=== PATIENT | male | born 1995 | race African-American/Black ===

== ENCOUNTER 2016-09-10 20:49 | Emergency (ER) ==
[2016-09-10 21:05] VITALS: BP 116/60
[2016-09-10 23:34] LABS: MANUAL DIFF NEEDED? NO
[2016-09-10 23:50] LABS: BASO% 0.3 % (0.0-0.8); EOS# 0.04 X1000 (0.0-0.7); EOS% 0.4 % (0.0-10.0); HEMATOCRIT 40.2 % (42.0-52.0); HEMOGLOBIN 14.2 g/dL (14.0-18.0); IMM GRAN# 0.01 X1000 (0.0-0.04); IMM GRAN% 0.1 % (0.0-0.5); LYMPH# 1.78 X1000 (1.2-3.4); LYMPH% 17.2 % (20.5-51.1); MCH 29.2 PG (27-31); MCHC 35.3 g/dL (33-37); MCV 82.5 FL (81-99); MONO# 0.88 X1000 (0.11-0.59); MONO% 8.5 % (1.7-9.3); MPV 10.7 FL (7.4-10.4); NEUT% 73.5 % (42.2-75.2); PLT 220 X1000 (130-400); RBC 4.87 XMIL (4.7-6.1)
[2016-09-10 23:58] LABS: AGAP 9; ALBUMIN 4.6 g/dL (3.5-5.0); ALKALINE PHOSPHATASE 68 U/L (32-122); AMYLASE 54 U/L (20-200); BUN 9 mg/dL (8-22); CALCIUM 9.4 mg/dL (8.8-10.2); CHLORIDE 101 mmol/L (98-107); COSMO 270; GOT 20 U/L (10-34); GPT 20 U/L (10-44); LIPASE 22 U/L (13-60); POTASSIUM 3.5 mmol/L (3.5-5.1); SODIUM 136 mmol/L (136-145); TCO2 26 mmol/L (25-35); TOTAL PROTEIN 7.2 g/dL (6.3-8.3)
--- NOTE | 2016-09-11 00:04 | PROVIDER DOCUMENTATION ---
HPI-Abdominal Pain/GI Problem - General Chief Complaint: N/V/D Stated Complaint: N/D Time Seen by Provider: 09/10/16 22:06 Allergies/Adverse Reactions: Patient Allergies Allergy/AdvReac Type Severity Reaction Status Date / Time No Known Allergies Allergy Verified 09/10/16 21:05 Home Medications: Home Medication List Medication Instructions Recorded Confirmed Last Taken Type Ondansetron [Zofran] 4 mg PO Q6H PRN PRN #20 tablet 09/11/16 Unknown Rx - History of Present Illness-ABD Nature of Presenting Problems: 21 yom c/o generalized abdomninal pain upon awakening tonight at 8pm with one time of diarrhea. No other symptoms. Abdominal Pain Onset Location: reports: generalized abdomen Pain Radiation: reports: no radiation Quality of Pain: reports: sharp Severity in ED: reports: mild Onset/Duration: reports: abrupt Timing: reports: still present, improving Activities at Onset: reports: sleep Exposure to sick contacts?: No Modifying Factors: improves with: nothing Associated Symptoms: reports: diarrhea Last BM: this evening Dark Stools Present?: reports: none noticed Rectal Bleeding: reports: none # of Diarrhea Episodes: 1 Rectal Pain: reports: none # of Vomiting Episodes: 0 Bruising or Bleeding Gums?: No Similar Symptoms Previously?: No Recently seen or treated by another doctor?: No Review of Systems - Adult - REVIEW OF SYSTEMS - ADULT Constitutional: reports: see HPI. denies: no symptoms reported, chills, fever, fatique, night sweats, weight gain, weight loss, other Eyes: reports: no symptoms reported. denies: see HPI, discharge, dry eyes, decreased vision, blurred vision, double vision, eye pain, redness, other Ears, Nose, Mouth & Throat: reports: no symptoms reported. denies: see HPI, ear discharge, ear pain, hearing loss, tinnitus, epistaxis, sinus problem, nose pain, loose teeth, mouth/dental pain, mouth swelling, hoarseness, throat pain, throat swelling, other Cardiovascular: reports: no symptoms reported. denies: see HPI, chest pain, edema, heart murmur, irregular heart rate, orthopnea, palpitations, poor circulation, PND, syncope, other Respiratory: reports: no symptoms reported. denies: see HPI, chronic cough, cough, dyspnea on exertion, excessive sputum production, hemoptysis, pleurisy, shortness of breath, wheezing, other Gastrointestinal: reports: see HPI, abdominal pain, diarrhea. denies: no symptoms reported, hematemesis, constipation, difficulty swallowing, frequent heartburn, nausea, poor appetite, rectal bleeding, vomiting, other Genitourinary: reports: no symptoms reported. denies: see HPI, dysuria, discharge, frequency, flank pain, frequent UTI's, hematuria, hesitency, incontinence, urinary retention, urgency, other Musculoskeletal: reports: no symptoms reported. denies: see HPI, bone pain, back pain, frequent leg cramps, joint pain, joint swelling, muscle aches, muscle weakness, neck pain, other Integumentary: reports: no symptoms reported. denies: see HPI, hives, hair loss , itching, mole changes, nail changes, rash, skin sores/ulcer, skin thickening, other Neurological: reports: no symptoms reported. denies: see HPI, ataxia, dizziness /vertigo, headache/migraines, loss of balance, numbness, paresthesia, seizure, slurred speech, syncope, tremors, other All Other Systems: Reviewed and Negative Past History - Adult - PAST MEDICAL HISTORY-ADULT Review of Records: reports: Old Records Reviewed, Nursing Assessment Review, Medications Reviewed, Social history reviewed & non-contributory. Major Childhood Illnesses: reports: denies history - PRIOR SURGERIES/PROCEDURES Surgical/Procedure History: reports: appendectomy - IMMUNIZATION STATUS Childhood Immunizations: UTD Flu Vaccine: UTD - FAMILY HISTORY Family History: reviewed, not pertinent Physical Exam-General - PHYSICAL EXAM-ADULT Initial Vital Signs Reviewed: Yes - CONSTITUTIONAL General Appearance: appears well, alert, no apparent distress. negative: mild distress, moderate distress, severe distress, cachetic, obese, thin, anxious, lethargic, slow to respond, obtunded, combative, other - EYES Eyes: PERRL/EOMI, pink conjunctivae. negative: fundi clear, no AV nicking, anisocoria, conjuctival exudate, EOM palsy, meningismus, pale conjunctivae, photophobia, sclera injected, scleral icterus, subconjunctival hemorrhage, sunken eyes, other - HEAD, EARS, NOSE, MOUTH & THROAT HENMT: normocephalic/atraumatic, moist mucous membranes, normal ENT inspection, TMs normal, pharynx normal. negative: angioedema, dental decay, hearing deficit , pharyngeal erythema, tonsillar exudate, TM abnormal, TM obscurred by cerumen, frontal tenderness, maxillary tenderness, other - NECK Neck: non-tender, full range of motion, supple, normal inspection. negative: Brudzinski's sign, carotid bruit, C-spine tenderness, limited range of motion, lymphadenopathy, meningismus, trachial deviation, tender lateral, tender midline , thyromegaly, other - RESPIRATORY Respiratory: chest non-tender, lungs clear, normal breath sounds, no pleuratic chest pain, no respiratory distress, no accessory muscle use. negative: respiratory distress, decreased breath sounds, accessory muscle use, crackles, rales, rhonchi, stridor, wheezing, dull on percussion, prolonged expiration, pain on inspiration, plerual rub, retractions, splinting, decreased rate, increased rate, crepitus, other - CARDIOVASCULAR Cardiovascular: normal peripheral pulses, regular rate, rhythm, no edema, no gallop, no JVD, no murmur. negative: JVD, bradycardia, tachycardia, diastolic murmur, systolic murmur, gallop/S3, gallop/S4, extra beats, friction rub, irregularly irregular, PMI displaced laterally, other - GASTROINTESTINAL (ABDOMEN) Abdominal Exam: normal bowel sounds, non tender, soft, no organomegaly, no pulsatile mass. negative: abdominal bruit, abnormal bowel sounds, distended, guarding, rigid, rebound, tenderness, hernia, mass, hepatomegaly, spleenomegaly , McBurney's point tenderness, Quezada's sign, obturator sign, prominent aortic pulsations, psoas, Rovsing's sign, other - GENITOURINARY Male Genitalia: deferred Rectal Exam: deferred Hemoccult Exam: deferred - LYMPHATIC Lymphatic: no adenopathy. negative: axilla node tender, cervical node tenderness, inguinal node tender, enlargement, striations, streaking, other - MUSCULOSKELETAL Back Exam: normal inspection, no CVA tenderness, no vertebral tenderness. negative: CVA tenderness, decreased range of motion, ecchymosis, kyphosis, lordosis, muscle spasm, scoliosis, swelling, vertebral tenderness, other Extremity: normal range of motion, non-tender, normal gait, normal inspection, no pedal edema, no calf tenderness, normal capillary refill. negative: pelvis stable, abnormal NV exam, calf tenderness, deformity, erythema, inflammation, joint effusion, pulse deficit, pedal edema, slow capillary refill, swelling, tenderness, other - SKIN Integumentary: normal color, normal turgor, warm/dry. negative: abrasion(s), blanching, cyanosis, diaphoresis, decubitus, dependent lividity, ecchymosis, embolic lesions, erythema, signs of IVDA, jaundice, laceration(s), mottled, pallor, petechiae, purpura, rash, swelling, tenderness, warm, zoster-like rash, other - NEUROLOGIC Neurologic: grossly normal - PSYCHIATRIC Psych/Mental Status: oriented x 3 Progress - PLAN OF CARE/RESULTS Progress/Plan/Lab Results: Laboratory Tests 09/10/16 09/10/16 23:30 23:30 WBC 10.34 RBC 4.87 Hgb 14.2 Hct 40.2 L MCV 82.5 MCH 29.2 MCHC 35.3 RDW Std Deviation 12.3 Plt Count 220 MPV 10.7 H Immature Gran % (Auto) 0.1 Neut % (Auto) 73.5 Lymph % (Auto) 17.2 L Gulf % (Auto) 8.5 Eos % (Auto) 0.4 Baso % (Auto) 0.3 Immature Gran # (Auto) 0.01 Neut # (Auto) 7.60 H Lymph # (Auto) 1.78 Gulf # (Auto) 0.88 H Eos # (Auto) 0.04 Baso # (Auto) 0.03 Sodium 136 Potassium 3.5 Chloride 101 Carbon Dioxide 26 Anion Gap 9 BUN 9 Creatinine 0.7 Estimated GFR/1.73 m2 > 60 BUN/Creatinine Ratio 13 Glucose 80 Calculated Osmolality 270 Calcium 9.4 Total Bilirubin 0.80 AST 20 ALT 20 Alkaline Phosphatase 68 Total Protein 7.2 Albumin 4.6 Globulin 3.0 Albumin/Globulin Ratio 2.0 Amylase 54 Lipase 22 Orders Category Date Time Status NPO Diet 09/10/16 22:38 Completed KUB ABDOMEN [RAD] Stat Exams 09/10/16 22:39 Completed AMYLASE [CHEM] Stat Lab 09/10/16 23:30 Completed CBC WITH ELECTRONIC DIFF [HEME] Stat Lab 09/10/16 23:30 Completed COMPREHENSIVE METABOLIC PANEL [CHEM] Stat Lab 09/10/16 23:30 Completed LIPASE [CHEM] Stat Lab 09/10/16 23:30 Completed Vital Signs Temp Pulse Resp BP Pulse Ox 09/10/16 21:02 97.0 F L 68 18 116/60 100 No Known Allergies Allergy (Verified 09/10/16 21:05) Ondansetron [Zofran] 4 mg PO Q6H PRN PRN #20 tablet 09/11/16 Laboratory 09/10/16 09/10/16 23:30 23:30 WBC 10.34 RBC 4.87 Hgb 14.2 Hct 40.2 L MCV 82.5 MCH 29.2 MCHC 35.3 RDW Std Deviation 12.3 Plt Count 220 MPV 10.7 H Immature Gran % (Auto) 0.1 Neut % (Auto) 73.5 Lymph % (Auto) 17.2 L Gulf % (Auto) 8.5 Eos % (Auto) 0.4 Baso % (Auto) 0.3 Immature Gran # (Auto) 0.01 Neut # (Auto) 7.60 H Lymph # (Auto) 1.78 Gulf # (Auto) 0.88 H Eos # (Auto) 0.04 Baso # (Auto) 0.03 Sodium 136 Potassium 3.5 Chloride 101 Carbon Dioxide 26 Anion Gap 9 BUN 9 Creatinine 0.7 Estimated GFR/1.73 m2 > 60 BUN/Creatinine Ratio 13 Glucose 80 Calculated Osmolality 270 Calcium 9.4 Total Bilirubin 0.80 AST 20 ALT 20 Alkaline Phosphatase 68 Total Protein 7.2 Albumin 4.6 Globulin 3.0 Albumin/Globulin Ratio 2.0 Amylase 54 Lipase 22 - XRAY 1 XRAY Study: Abdomen Impression: Abnormal (Mild constipation per radiologist) Departure - Departure Time of Disposition Order: 00:03 DIAGNOSIS: Abdominal pain Qualifiers: Abdominal location: generalized Qualified Code(s): R10.84 - Generalized abdominal pain Disposition: HOME 01 Certified Medical Emergency: Emergent Condition: Stable Additional Instructions: ED Follow Up Instructions: You have been treated by a care provider in the Emergency Department. These instructions are being provided to you so you can have an understanding of how to care for yourself upon discharge. Upon discharge from the Emergency Department, you are responsible for making arrangements for follow-up care by a physician of your choice. Take all prescribed medications as directed. Return to the Emergency Department immediately for any new or worsening symptoms. You may call the Physician Referral phone number at [phone] to obtain a list of Physicians who are taking new patients. Prescriptions: Ondansetron [Zofran] 4 mg PO Q6H PRN PRN #20 tablet PRN Reason: Nausea Referrals: None,PCP [Primary Care Provider] - Forms: Return to School/Parent Work Instructions: Nausea, Adult Attestation - Physician/ SRIDHAR Attestation Patient care was provided by Advanced Practice Provider:: Yes Advanced Practice Provider:: Ramsey Gray Advanced Practice Provider documentation review:: The Mid-level provider documentation, treatment plan and medical decision making was reviewed by the physician who agrees with all treatment and medical decision making by the MLP. Physician Attestation - Physician Attestation I, the provider, attest to the following statement:: Ramsey Gray Physician documentation Attestation:: This documentation recorded by the scribe accurately reflects the service I personally performed and the decisions made by me.
--- NOTE | 2016-09-11 08:30 | Diag Imaging Result Document ---
PROCEDURE NAME: RADHA ABDOMEN - 09/10/2016 ABDOMEN SINGLE VIEW: COMPARISON: Compared to 10/16/2014. FINDINGS: No free air beneath the diaphragm. No bowel obstruction. No organomegaly. No abnormal abdominal calcifications. Stool is found throughout the colon. IMPRESSION: Mild constipation.
== END 2016-09-11 00:24 | disposition home or self-care (01) ==
LOC: P.ED 20:49
DX: R10.84 Generalized abdominal pain (principal); K59.00 Constipation, unspecified; R19.7 Diarrhea, unspecified
CPT/HCPCS: 74000; 80053; 82150; 83690; 85025; 99283